=== PATIENT | male | born 1965 | race Two or more races ===

== ENCOUNTER → 2024-01-16 | Outpatient (CLI) | payer OTHER, MEDICAID, SELFPAY ==
[2024-01-16 09:51] LABS: Collection Type, Urine Clean Catch; Squamous Epithelial Cell,Urine 0 /hpf (0-5)
[2024-01-16 10:12] LABS: Basophils % (Auto) 0 % (0-2.5); Eosinophils # (Auto) 0.1 Thou/mm3 (0.0-0.5); Eosinophils % (Auto) 1 % (0-10); Hematocrit 43.2 % (41.0-53.0); Immature Granulocytes % (Auto) 1 % (0-0); Immature Granulocytes Auto 0.03 Thou/mm3 (0.00-0.00); Lymphocytes # (Auto) 1.6 Thou/mm3 (1.0-4.8); Lymphocytes % (Auto) 24 % (10-50); Mean Corpuscular Volume 92 fL (80-100); Monocytes # (Auto) 0.5 Thou/mm3 (0.0-0.8); Monocytes % (Auto) 7 % (0-12); Neutrophils # (Auto) 4.4 Thou/mm3 (1.8-7.7); Neutrophils % (Auto) 67 % (37-80); Nucleated Red Blood Cell % 0 /100 WBC (0); Platelet Count 144 Thou/mm3 (140-440); RDW Standard Deviation 40.8 fL (35.1-43.9); White Blood Count 6.5 Thou/mm3 (3.8-10.6)
[2024-01-16 10:16] LABS: Creatinine,Random Urine 74 mg/dL (30-125); Protein Total, Random Urine 21 mg/dL (1-14)
[2024-01-16 10:18] LABS: Bilirubin,Urine Negative (Negative); Blood,Urine Negative (Negative); Clarity,Urine Clear (Clear/Hazy); Color,Urine Lt-Yellow (Lt Yel-Yel); Culture Indicated,Urine Not Indicated; Glucose, Urine 4+ (Negative); Ketones,Urine Trace (Negative); Leukocyte Esterase,Urine Negative (Negative); Nitrite,Urine Negative (Negative); Protein,Urine Negative (Neg - Trace); RBC,Urine < 1 /hpf (0-3); Specific Gravity,Urine 1.041 (1.001-1.035); Urobilinogen,Urine Negative mg/dL (0.0-1.0); WBC,Urine < 1 /hpf (0-5)
[2024-01-16 10:22] LABS: Alanine Aminotransferase 62 U/L (10-49); Albumin, Serum 4.4 gm/dL (3.4-4.8); Albumin/Globulin Ratio 1.9 (1.2-2.2); Alkaline Phosphatase 108 U/L (46-116); Anion Gap 6 (7-16); Aspartate Amino Transferase 56 U/L (0-34); BUN/Creatinine Ratio 14 Ratio (12-20); Bilirubin,Total 1.3 mg/dL (0.3-1.2); Blood Urea Nitrogen 14 mg/dL (9-23); Calcium 10.1 mg/dL (8.3-10.6); Calcium (Corrected) 10.1 mg/dL (8.5-10.1); Carbon Dioxide 27.8 mMol/L (20.0-31.0); Chloride 105 mMol/L (98-107); Globulin 2.3 gm/dL (2.3-3.5); Glucose 176 mg/dL (74-106); Magnesium 1.6 mg/dL (1.6-2.6); Osmolality,Calculated 282 (275-295); Phosphorous 2.3 mg/dL (2.4-5.1); Potassium 4.2 mMol/L (3.4-5.1); Sodium 139 mMol/L (136-145); Total Protein 6.7 gm/dL (5.7-8.2); eGFR > 60 See Note
[2024-01-22 17:48] LABS: BKQL Source NOT GIVEN; CMV DNA, Qn Real Time PCR NOT DETECTED; CMV Specimen Source NOT GIVEN
[2024-01-23 06:50] LABS: BK Virus DNA, Qnt PCR <2.70 DETECTED Log cps/mL; BK Virus DNA, Qnt PCR <500 DETECTED copies/mL; CMV DNA, Qn PCR NOT DETECTED Log IU/mL; Tacrolimus,highly sensitive* 5.4 mcg/L (5.0-20.0)
[2024-01-23 17:49] LABS: BK Virus DNA,QN PCR,Urine 534667 copies/mL
[2024-01-27 06:32] LABS: BK Virus DNA,QN PCR,Urine 5.73 Log cps/mL
== END | disposition home or self-care (01) ==
PROVIDERS: PCP Family Medicine; Referring Provider Specialist; Visit Provider Specialist
DX: B25.9 Cytomegaloviral disease, unspecified (principal); B34.8 Other viral infections of unspecified site; E83.42 Hypomagnesemia; E83.39 Other disorders of phosphorus metabolism; R80.9 Proteinuria, unspecified
CPT/HCPCS: 36415; 80053; 80197; 81001; 82570; 83735; 84100; 84156; 85025; 87497; 87799

== ENCOUNTER → 2024-03-15 | Outpatient (CLI) | payer OTHER, MEDICAID, SELFPAY ==
--- NOTE | 2024-03-15 | XR_ITS ---
Examination: Thoracic spine 3 views Technique one AP lateral coned lateral upper dorsal spine 3 views Exam date and time: March 15, 2024 1132 hours INDICATIONS: Right-sided upper back pain beginning one month ago. FINDINGS: Significant osteopenia Mild chronic osteoporotic compression mid dorsal vertebral bodies Mild diffuse thoracic disc narrowing No acute thoracic fracture Intact pedicles IMPRESSION: Mild diffuse thoracic degenerative disc disease
== END | disposition home or self-care (01) ==
PROVIDERS: PCP Family Medicine; Referring Provider Family Medicine; Visit Provider Family Medicine
DX: M51.34 Other intervertebral disc degeneration, thoracic region (principal)
CPT/HCPCS: 72070

== ENCOUNTER → 2024-03-19 | Outpatient (CLI) | payer MEDICARE, MEDICAID, SELFPAY ==
[2024-03-19 12:58] LABS: Glucose Estimated Average 243 mg/dL (80-131); Hemoglobin A1C 10.1 % Hgb (4.8-6.0)
[2024-03-19 13:00] LABS: Anion Gap 12 (7-16); BUN/Creatinine Ratio 14 Ratio (12-20); Blood Urea Nitrogen 15 mg/dL (9-23); Calcium 10.3 mg/dL (8.3-10.6); Carbon Dioxide 23.9 mMol/L (20.0-31.0); Chloride 99 mMol/L (98-107); Creatinine (Component) 1.1 mg/dL (0.6-1.3); Glucose 361 mg/dL (74-106); Osmolality,Calculated 285 (275-295); Potassium 4.4 mMol/L (3.4-5.1); Sodium 135 mMol/L (136-145); eGFR > 60 See Note
== END | disposition home or self-care (01) ==
LOC: COPL 11:13
PROVIDERS: PCP Family Medicine; Referring Provider Family Medicine; Visit Provider Family Medicine
DX: E11.65 Type 2 diabetes mellitus with hyperglycemia (principal)
CPT/HCPCS: 36415; 80048; 83036

== ENCOUNTER → 2024-03-29 | Outpatient (CLI) | payer MEDICARE, MEDICAID, SELFPAY ==
[2024-03-29 10:25] LABS: Collection Type, Urine Clean Catch
[2024-03-29 10:44] LABS: Basophils % (Auto) 1 % (0-2.5); Eosinophils # (Auto) 0.1 Thou/mm3 (0.0-0.5); Eosinophils % (Auto) 1 % (0-10); Hematocrit 44.9 % (41.0-53.0); Hemoglobin 16.5 g/dL (13.5-16.0); Immature Granulocytes % (Auto) 1 % (0-0); Immature Granulocytes Auto 0.04 Thou/mm3 (0.00-0.00); Lymphocytes # (Auto) 1.4 Thou/mm3 (1.0-4.8); Lymphocytes % (Auto) 21 % (10-50); Mean Corpuscular HGB Conc 36.7 g/dl (31.0-37.0); Mean Corpuscular Hemoglobin 33.5 pg (25.0-35.0); Mean Corpuscular Volume 91 fL (80-100); Monocytes # (Auto) 0.5 Thou/mm3 (0.0-0.8); Monocytes % (Auto) 8 % (0-12); Neutrophils # (Auto) 4.9 Thou/mm3 (1.8-7.7); Neutrophils % (Auto) 70 % (37-80); Nucleated Red Blood Cell % 0 /100 WBC (0); Platelet Count 178 Thou/mm3 (140-440); RDW Standard Deviation 41.5 fL (35.1-43.9); Red Blood Count 4.92 Miln/mm3 (4.50-5.90)
[2024-03-29 10:55] LABS: Bilirubin,Urine Negative (Negative); Blood,Urine Negative (Negative); Clarity,Urine Clear (Clear/Hazy); Color,Urine Lt-Yellow (Lt Yel-Yel); Culture Indicated,Urine Not Indicated; Glucose, Urine 4+ (Negative); Ketones,Urine 1+ (Negative); Leukocyte Esterase,Urine Negative (Negative); Nitrite,Urine Negative (Negative); Protein,Urine Trace (Neg - Trace); RBC,Urine 1 /hpf (0-3); Specific Gravity,Urine 1.041 (1.001-1.035); Squamous Epithelial Cell,Urine < 1 /hpf (0-5); Urobilinogen,Urine Negative mg/dL (0.0-1.0); WBC,Urine < 1 /hpf (0-5)
[2024-03-29 11:10] LABS: Alanine Aminotransferase 55 U/L (10-49); Albumin, Serum 4.4 gm/dL (3.4-4.8); Albumin/Globulin Ratio 1.6 (1.2-2.2); Alkaline Phosphatase 213 U/L (46-116); Anion Gap 9 (7-16); Aspartate Amino Transferase 77 U/L (0-34); BUN/Creatinine Ratio 16 Ratio (12-20); Bilirubin,Total 0.9 mg/dL (0.3-1.2); Blood Urea Nitrogen 16 mg/dL (9-23); Calcium 10.7 mg/dL (8.3-10.6); Calcium (Corrected) 10.7 mg/dL (8.5-10.1); Carbon Dioxide 26.7 mMol/L (20.0-31.0); Chloride 101 mMol/L (98-107); Globulin 2.7 gm/dL (2.3-3.5); Glucose 253 mg/dL (74-106); Magnesium 1.9 mg/dL (1.6-2.6); Osmolality,Calculated 284 (275-295); Phosphorous 3.5 mg/dL (2.4-5.1); Potassium 4.6 mMol/L (3.4-5.1); Sodium 137 mMol/L (136-145); Total Protein 7.1 gm/dL (5.7-8.2); eGFR > 60 See Note
[2024-03-29 11:11] LABS: Creatinine,Random Urine 44 mg/dL (30-125); Protein Total, Random Urine 24 mg/dL (1-14)
[2024-03-31 13:49] LABS: BK Virus DNA,QN PCR,Urine 13898154 copies/mL
[2024-04-01 06:55] LABS: BK Virus DNA,QN PCR,Urine 7.14 Log cps/mL
[2024-04-03 22:08] LABS: BKQL Source BLOOD; CMV DNA, Qn Real Time PCR NOT DETECTED; CMV Specimen Source BLOOD
[2024-04-05 06:59] LABS: BK Virus DNA, Qnt PCR <2.70 DETECTED Log cps/mL; BK Virus DNA, Qnt PCR <500 DETECTED copies/mL; CMV DNA, Qn PCR NOT DETECTED Log IU/mL; Tacrolimus,highly sensitive* 12.2 mcg/L (5.0-20.0)
== END | disposition home or self-care (01) ==
PROVIDERS: PCP Family Medicine; Referring Provider Specialist; Visit Provider Specialist
DX: Z94.0 Kidney transplant status (principal); B25.9 Cytomegaloviral disease, unspecified; E83.42 Hypomagnesemia; E83.39 Other disorders of phosphorus metabolism; N39.0 Urinary tract infection, site not specified; R80.9 Proteinuria, unspecified
CPT/HCPCS: 36415; 80053; 80197; 81001; 82570; 83735; 84100; 84156; 85025; 87497; 87799

== ENCOUNTER → 2024-04-12 | Outpatient (CLI) | payer MEDICARE, MEDICAID, SELFPAY ==
[2024-04-12 10:43] LABS: Basophils % (Auto) 0 % (0-2.5); Eosinophils # (Auto) 0.1 Thou/mm3 (0.0-0.5); Eosinophils % (Auto) 1 % (0-10); Hematocrit 43.5 % (41.0-53.0); Immature Granulocytes % (Auto) 0 % (0-0); Immature Granulocytes Auto 0.03 Thou/mm3 (0.00-0.00); Lymphocytes # (Auto) 1.3 Thou/mm3 (1.0-4.8); Lymphocytes % (Auto) 19 % (10-50); Mean Corpuscular HGB Conc 36.8 g/dl (31.0-37.0); Mean Corpuscular Hemoglobin 33.5 pg (25.0-35.0); Mean Corpuscular Volume 91 fL (80-100); Monocytes # (Auto) 0.5 Thou/mm3 (0.0-0.8); Monocytes % (Auto) 7 % (0-12); Neutrophils % (Auto) 72 % (37-80); Nucleated Red Blood Cell % 0 /100 WBC (0); Platelet Count 141 Thou/mm3 (140-440); RDW Standard Deviation 40.9 fL (35.1-43.9); Red Blood Count 4.78 Miln/mm3 (4.50-5.90)
[2024-04-12 11:12] LABS: Collection Type, Urine Clean Catch; RBC,Urine 0 /hpf (0-3); Squamous Epithelial Cell,Urine 0 /hpf (0-5); WBC,Urine 0 /hpf (0-5)
[2024-04-12 11:49] LABS: Alanine Aminotransferase 38 U/L (10-49); Albumin, Serum 4.2 gm/dL (3.4-4.8); Albumin/Globulin Ratio 1.8 (1.2-2.2); Alkaline Phosphatase 157 U/L (46-116); Anion Gap 10 (7-16); Aspartate Amino Transferase 42 U/L (0-34); BUN/Creatinine Ratio 18 Ratio (12-20); Bilirubin,Total 0.9 mg/dL (0.3-1.2); Blood Urea Nitrogen 18 mg/dL (9-23); Carbon Dioxide 25.6 mMol/L (20.0-31.0); Chloride 103 mMol/L (98-107); Globulin 2.4 gm/dL (2.3-3.5); Glucose 272 mg/dL (74-106); Magnesium 1.9 mg/dL (1.6-2.6); Osmolality,Calculated 289 (275-295); Phosphorous 2.5 mg/dL (2.4-5.1); Potassium 4.1 mMol/L (3.4-5.1); Sodium 139 mMol/L (136-145); Total Protein 6.6 gm/dL (5.7-8.2); eGFR > 60 See Note
[2024-04-12 11:52] LABS: Bilirubin,Urine Negative (Negative); Blood,Urine Negative (Negative); Clarity,Urine Clear (Clear/Hazy); Color,Urine Lt-Yellow (Lt Yel-Yel); Creatinine,Random Urine 53 mg/dL (30-125); Glucose, Urine 4+ (Negative); Ketones,Urine 2+ (Negative); Leukocyte Esterase,Urine Negative (Negative); Nitrite,Urine Negative (Negative); Protein Total, Random Urine 35 mg/dL (1-14); Protein,Urine 1+ (Neg - Trace); Specific Gravity,Urine 1.044 (1.001-1.035); Urobilinogen,Urine Negative mg/dL (0.0-1.0)
[2024-04-14 07:05] LABS: BK Virus DNA,QN PCR,Urine 21916862 copies/mL
[2024-04-14 07:54] LABS: BK Virus DNA,QN PCR,Urine 7.34 Log cps/mL
[2024-04-17 17:47] LABS: BKQL Source PLASMA; CMV DNA, Qn Real Time PCR NOT DETECTED; CMV Specimen Source WHOLE BLOOD LAV
[2024-04-19 06:38] LABS: BK Virus DNA, Qnt PCR <2.70 DETECTED Log cps/mL; BK Virus DNA, Qnt PCR <500 DETECTED copies/mL; CMV DNA, Qn PCR NOT DETECTED Log IU/mL; Tacrolimus,highly sensitive* 4.2 mcg/L (5.0-20.0)
== END | disposition home or self-care (01) ==
LOC: COPL 10:01
PROVIDERS: PCP Family Medicine; Referring Provider Specialist; Visit Provider Specialist
DX: Z94.0 Kidney transplant status (principal); B25.9 Cytomegaloviral disease, unspecified; E83.42 Hypomagnesemia; E83.39 Other disorders of phosphorus metabolism; R80.9 Proteinuria, unspecified; N39.0 Urinary tract infection, site not specified
CPT/HCPCS: 36415; 80053; 80197; 81001; 82570; 83735; 84100; 84156; 85025; 87086; 87497; 87799

== ENCOUNTER → 2024-05-17 | Outpatient (CLI) | payer MEDICARE, MEDICAID, SELFPAY ==
[2024-05-17 10:52] LABS: Collection Type, Urine Clean Catch; WBC,Urine 0 /hpf (0-5)
[2024-05-17 11:25] LABS: Basophils % (Auto) 0 % (0-2.5); Eosinophils # (Auto) 0.1 Thou/mm3 (0.0-0.5); Eosinophils % (Auto) 1 % (0-10); Hematocrit 46.7 % (41.0-53.0); Immature Granulocytes % (Auto) 0 % (0-0); Immature Granulocytes Auto 0.04 Thou/mm3 (0.00-0.00); Lymphocytes # (Auto) 1.7 Thou/mm3 (1.0-4.8); Lymphocytes % (Auto) 19 % (10-50); Mean Corpuscular HGB Conc 36.4 g/dl (31.0-37.0); Mean Corpuscular Hemoglobin 33.1 pg (25.0-35.0); Mean Corpuscular Volume 91 fL (80-100); Monocytes # (Auto) 0.6 Thou/mm3 (0.0-0.8); Monocytes % (Auto) 6 % (0-12); Neutrophils # (Auto) 6.5 Thou/mm3 (1.8-7.7); Neutrophils % (Auto) 73 % (37-80); Nucleated Red Blood Cell % 0 /100 WBC (0); Platelet Count 155 Thou/mm3 (140-440); RDW Standard Deviation 40.9 fL (35.1-43.9); Red Blood Count 5.13 Miln/mm3 (4.50-5.90); White Blood Count 8.9 Thou/mm3 (3.8-10.6)
[2024-05-17 11:28] LABS: Bilirubin,Urine Negative (Negative); Blood,Urine Negative (Negative); Clarity,Urine Clear (Clear/Hazy); Color,Urine Lt-Yellow (Lt Yel-Yel); Glucose, Urine 4+ (Negative); Hyaline Casts,Urine < 1 /hpf (0-1); Ketones,Urine 1+ (Negative); Leukocyte Esterase,Urine Negative (Negative); Nitrite,Urine Negative (Negative); Protein,Urine Trace (Neg - Trace); RBC,Urine 1 /hpf (0-3); Specific Gravity,Urine 1.044 (1.001-1.035); Squamous Epithelial Cell,Urine < 1 /hpf (0-5); Urobilinogen,Urine Negative mg/dL (0.0-1.0)
[2024-05-17 12:09] LABS: Albumin, Serum 4.7 gm/dL (3.4-4.8); Anion Gap 11 (7-16); BUN/Creatinine Ratio 18 Ratio (12-20); Blood Urea Nitrogen 18 mg/dL (9-23); Calcium 10.3 mg/dL (8.3-10.6); Calcium (Corrected) 10.3 mg/dL (8.5-10.1); Carbon Dioxide 24.6 mMol/L (20.0-31.0); Chloride 104 mMol/L (98-107); Glucose 181 mg/dL (74-106); Osmolality,Calculated 286 (275-295); Potassium 4.5 mMol/L (3.4-5.1); Sodium 140 mMol/L (136-145); eGFR > 60 See Note
== END | disposition home or self-care (01) ==
LOC: COPL 10:20
PROVIDERS: PCP Family Medicine; Referring Provider Internal Medicine Nephrology; Visit Provider Internal Medicine Nephrology
DX: E11.9 Type 2 diabetes mellitus without complications (principal); I10 Essential (primary) hypertension; Z94.0 Kidney transplant status
CPT/HCPCS: 36415; 80069; 80197; 81001; 85025

== ENCOUNTER → 2024-06-07 | Outpatient (CLI) | payer OTHER, MEDICAID, SELFPAY ==
[2024-06-07 11:46] LABS: Creatinine MALB Rnd Ur 44 mg/dL (30-125); Microalbumin Creat Ratio 200 mg/gCrea (<30); Microalbumin, Random Urine 88 mg/L (0-300)
[2024-06-07 11:46] LABS: Anion Gap 12 (7-16); BUN/Creatinine Ratio 18 Ratio (12-20); Blood Urea Nitrogen 18 mg/dL (9-23); Calcium 10.3 mg/dL (8.3-10.6); Carbon Dioxide 24.9 mMol/L (20.0-31.0); Cardiac Risk Estimate 5.7 RATIO (4.0-6.7); Chloride 100 mMol/L (98-107); Cholesterol 290 mg/dL (132-200); Glucose 338 mg/dL (74-106); HDL Cholesterol 51 mg/dL (40-60); Osmolality,Calculated 288 (275-295); Potassium 4.4 mMol/L (3.4-5.1); Sodium 137 mMol/L (136-145); Triglycerides 559 mg/dL (30-150); eGFR > 60 See Note
[2024-06-07 11:50] LABS: Glucose Estimated Average 226 mg/dL (80-131); Hemoglobin A1C 9.5 % Hgb (4.8-6.0)
== END | disposition home or self-care (01) ==
LOC: COPL 10:18
PROVIDERS: PCP Family Medicine; Referring Provider Family Medicine; Visit Provider Family Medicine
DX: E11.65 Type 2 diabetes mellitus with hyperglycemia (principal)
CPT/HCPCS: 36415; 80048; 80061; 82043; 82570; 83036

== ENCOUNTER → 2024-06-08 | Outpatient (CLI) | payer OTHER, MEDICAID, SELFPAY ==
--- NOTE | 2024-06-08 | XR_ITS ---
Examination: Lumbar spine 7 views TECHNIQUE: AP, lateral, coned lateral lower lumbar spine, lateral standing flexion, lateral standing extension, [place] 7 views Exam date and time: June 08, 2024 1237 hours INDICATIONS: Lower back pain years., History lumbar spine surgery FINDINGS: Moderate osteopenia Transpedicular lumbar fusion L4-S1 with anatomic alignment Mild lumbar spondylosis No significant lumbar disc narrowing above the fusion site IMPRESSION: Transpedicular lumbar fusion L4-S1 with anatomic alignment No significant range of motion between flexion and extension
== END | disposition home or self-care (01) ==
PROVIDERS: PCP Family Medicine; Referring Provider Family Medicine; Visit Provider Family Medicine
DX: M43.27 Fusion of spine, lumbosacral region (principal)
CPT/HCPCS: 72114

== ENCOUNTER → 2024-07-07 | Outpatient (CLI) | payer OTHER, MEDICAID, SELFPAY ==
--- NOTE | 2024-07-07 15:00 | XR_ITS ---
Examination: CT abdomen with intravenous contrast CT pelvis with intravenous contrast 2-D coronal reconstructions 2-D sagittal reconstructions Date and time of exam:July 07, 2024 1506 hours Comparison June 02, 2020 INDICATIONS: Diagnosis central hemorrhagic necrosis of the liver, right upper abdominal pain right lower abdominal pain beginning 3 weeks ago, 12 pound weight loss in the last 5 months, right kidney transplant 2007. CTDI: vol (mGy) 5.77 DLP: (mGycm) 356 Technique: Multiple axial sections of the abdomen and pelvis have been obtained. 64 slice high-resolution scanner used. 3 mm axial sections have been obtained, post intravenous injection 60 cc [id number] 2-D sagittal, coronal reconstructions obtained. Low dose protocols were performed. One or more of the following dose reduction techniques were used; automated exposure control, adjustment of the mA and/or KV according to patient size, use of iterative reconstruction technique. Findings: Stable multiple small liver cysts Fatty infiltration throughout the liver Contracted gallbladder No splenic or pancreatic mass Normal adrenal glands End stage atrophic [place] kidneys with 2 mm right renal calculus Aorta normal size Normal appendix No bowel obstruction Colonic diverticulosis Right pelvic transplant kidney with no hydronephrosis Intact urinary bladder Transverse prostate dimension 4.8 cm Transpedicular lumbar fusion L4-S1 with satisfactory alignment including laminectomies IMPRESSION: Stable small multiple cysts in the liver End-stage [place] kidneys Pelvic transplant kidney with no hydronephrosis
== END | disposition home or self-care (01) ==
LOC: CCTX 14:47
PROVIDERS: PCP Family Medicine; Referring Provider Internal Medicine Nephrology; Visit Provider Internal Medicine Nephrology
DX: K76.89 Other specified diseases of liver (principal); Z94.0 Kidney transplant status
CPT/HCPCS: 74177; A4649; Q9967

== ENCOUNTER → 2024-08-24 | Outpatient (CLI) | payer OTHER, MEDICAID, SELFPAY ==
[2024-08-24 09:22] LABS: Basophils % (Auto) 1 % (0-2.5); Eosinophils # (Auto) 0.1 Thou/mm3 (0.0-0.5); Eosinophils % (Auto) 1 % (0-10); Hematocrit 40.5 % (41.0-53.0); Hemoglobin 15.7 g/dL (13.5-16.0); Immature Granulocytes % (Auto) 1 % (0-0); Immature Granulocytes Auto 0.03 Thou/mm3 (0.00-0.00); Lymphocytes # (Auto) 1.2 Thou/mm3 (1.0-4.8); Lymphocytes % (Auto) 18 % (10-50); Mean Corpuscular HGB Conc 38.8 g/dl (31.0-37.0); Mean Corpuscular Hemoglobin 34.1 pg (25.0-35.0); Mean Corpuscular Volume 88 fL (80-100); Monocytes # (Auto) 0.4 Thou/mm3 (0.0-0.8); Monocytes % (Auto) 6 % (0-12); Neutrophils # (Auto) 4.8 Thou/mm3 (1.8-7.7); Neutrophils % (Auto) 74 % (37-80); Nucleated Red Blood Cell % 0 /100 WBC (0); Platelet Count 140 Thou/mm3 (140-440); RDW Standard Deviation 39.5 fL (35.1-43.9); White Blood Count 6.5 Thou/mm3 (3.8-10.6)
[2024-08-24 09:47] LABS: Albumin, Serum 4.1 gm/dL (3.4-4.8); Anion Gap 11 (7-16); BUN/Creatinine Ratio 11 Ratio (12-20); Blood Urea Nitrogen 10 mg/dL (9-23); Calcium 9.2 mg/dL (8.3-10.6); Calcium (Corrected) 9.2 mg/dL (8.5-10.1); Carbon Dioxide 26.6 mMol/L (20.0-31.0); Chloride 104 mMol/L (98-107); Creatinine (Component) 0.9 mg/dL (0.6-1.3); Glucose 271 mg/dL (74-106); Osmolality,Calculated 292 (275-295); Phosphorous 1.9 mg/dL (2.4-5.1); Potassium 4.2 mMol/L (3.4-5.1); Sodium 142 mMol/L (136-145); eGFR > 60 See Note
[2024-08-24 10:13] LABS: Glucose Estimated Average 235 mg/dL (80-131); Hemoglobin A1C 9.8 % Hgb (4.8-6.0)
[2024-08-24 10:31] LABS: Collection Type, Urine Clean Catch
[2024-08-24 11:25] LABS: Bilirubin,Urine Negative (Negative); Blood,Urine Negative (Negative); Clarity,Urine Clear (Clear/Hazy); Color,Urine Lt-Yellow (Lt Yel-Yel); Glucose, Urine 4+ (Negative); Ketones,Urine 2+ (Negative); Leukocyte Esterase,Urine Negative (Negative); Nitrite,Urine Negative (Negative); Protein,Urine Trace (Neg - Trace); RBC,Urine 2 /hpf (0-3); Specific Gravity,Urine 1.038 (1.001-1.035); Squamous Epithelial Cell,Urine 1 /hpf (0-5); Urobilinogen,Urine Negative mg/dL (0.0-1.0); WBC,Urine < 1 /hpf (0-5)
[2024-08-30 07:15] LABS: Tacrolimus,highly sensitive* 1.2 mcg/L (5.0-20.0)
== END | disposition home or self-care (01) ==
LOC: COPL 08:49
PROVIDERS: PCP Family Medicine; Referring Provider Internal Medicine Nephrology; Visit Provider Internal Medicine Nephrology
DX: E11.9 Type 2 diabetes mellitus without complications (principal); E66.3 Overweight; Z94.0 Kidney transplant status
CPT/HCPCS: 36415; 80069; 80197; 81001; 83036; 85025

== ENCOUNTER → 2024-11-02 | Outpatient (CLI) | payer OTHER, MEDICAID, SELFPAY ==
[2024-11-02 10:35] LABS: Glucose Estimated Average 252 mg/dL (80-131); Hemoglobin A1C 10.4 % Hgb (4.8-6.0)
[2024-11-02 10:45] LABS: Anion Gap 11 (7-16); BUN/Creatinine Ratio 16 Ratio (12-20); Blood Urea Nitrogen 14 mg/dL (9-23); Calcium 10.0 mg/dL (8.3-10.6); Carbon Dioxide 26.1 mMol/L (20.0-31.0); Chloride 102 mMol/L (98-107); Creatinine (Component) 0.9 mg/dL (0.6-1.3); Glucose 297 mg/dL (74-106); Osmolality,Calculated 289 (275-295); Potassium 4.3 mMol/L (3.4-5.1); Sodium 139 mMol/L (136-145); eGFR > 60 See Note
== END | disposition home or self-care (01) ==
LOC: COPL 09:39
PROVIDERS: PCP Family Medicine; Referring Provider Family Medicine; Visit Provider Family Medicine
DX: E11.65 Type 2 diabetes mellitus with hyperglycemia (principal)
CPT/HCPCS: 36415; 80048; 83036

== ENCOUNTER → 2024-11-24 | Outpatient (CLI) | payer OTHER, MEDICAID, SELFPAY ==
[2024-11-24 09:07] LABS: Collection Type, Urine Clean Catch; Squamous Epithelial Cell,Urine 0 /hpf (0-5)
[2024-11-24 09:31] LABS: Basophils # (Auto) 0.0 Thou/mm3 (0.0-0.2); Basophils % (Auto) 0 % (0-2.5); Eosinophils # (Auto) 0.1 Thou/mm3 (0.0-0.5); Eosinophils % (Auto) 1 % (0-10); Hematocrit 41.7 % (41.0-53.0); Hemoglobin 15.6 g/dL (13.5-16.0); Immature Granulocytes Auto 0.04 Thou/mm3 (0.00-0.00); Lymphocytes # (Auto) 1.2 Thou/mm3 (1.0-4.8); Lymphocytes % (Auto) 18 % (10-50); Mean Corpuscular HGB Conc 37.4 g/dl (31.0-37.0); Mean Corpuscular Hemoglobin 34.4 pg (25.0-35.0); Mean Corpuscular Volume 92 fL (80-100); Monocytes # (Auto) 0.5 Thou/mm3 (0.0-0.8); Monocytes % (Auto) 8 % (0-12); Neutrophils # (Auto) 4.9 Thou/mm3 (1.8-7.7); Neutrophils % (Auto) 72 % (37-80); Nucleated Red Blood Cell # 0.00 Thou/mm3 (0.00-0.00); Nucleated Red Blood Cell % 0 /100 WBC (0); Platelet Count 144 Thou/mm3 (140-440); RDW Standard Deviation 40.7 fL (35.1-43.9); Red Blood Count 4.53 Miln/mm3 (4.50-5.90); White Blood Count 6.8 Thou/mm3 (3.8-10.6)
[2024-11-24 09:40] LABS: Bilirubin,Urine Negative (Negative); Blood,Urine Negative (Negative); Clarity,Urine Clear (Clear/Hazy); Color,Urine Lt-Yellow (Lt Yel-Yel); Culture Indicated,Urine Not Indicated; Glucose, Urine 4+ (Negative); Ketones,Urine Trace (Negative); Leukocyte Esterase,Urine Negative (Negative); Nitrite,Urine Negative (Negative); PH,Urine 6.5 (5.0-7.0); Protein,Urine Trace (Neg - Trace); RBC,Urine < 1 /hpf (0-3); Specific Gravity,Urine 1.041 (1.001-1.035); Urobilinogen,Urine Negative mg/dL (0.0-1.0); WBC,Urine < 1 /hpf (0-5)
[2024-11-24 09:51] LABS: Albumin, Serum 4.1 gm/dL (3.4-4.8); Anion Gap 9 (7-16); BUN/Creatinine Ratio 10 Ratio (12-20); Blood Urea Nitrogen 9 mg/dL (9-23); Calcium 9.7 mg/dL (8.3-10.6); Calcium (Corrected) 9.7 mg/dL (8.5-10.1); Carbon Dioxide 27.8 mMol/L (20.0-31.0); Chloride 100 mMol/L (98-107); Creatinine (Component) 0.9 mg/dL (0.6-1.3); Glucose 337 mg/dL (74-106); Osmolality,Calculated 285 (275-295); Phosphorous 2.6 mg/dL (2.4-5.1); Potassium 4.0 mMol/L (3.4-5.1); Sodium 137 mMol/L (136-145); eGFR > 60 See Note
[2024-11-29 06:37] LABS: Tacrolimus,highly sensitive* 2.2 mcg/L (5.0-20.0)
== END | disposition home or self-care (01) ==
LOC: COPL 08:34
PROVIDERS: PCP Family Medicine; Referring Provider Internal Medicine Nephrology; Visit Provider Internal Medicine Nephrology
DX: Z94.0 Kidney transplant status (principal); N39.0 Urinary tract infection, site not specified; I10 Essential (primary) hypertension; E11.9 Type 2 diabetes mellitus without complications
CPT/HCPCS: 36415; 80069; 80197; 81001; 85025

== ENCOUNTER → 2024-12-29 | Outpatient (CLI) | payer OTHER, MEDICAID, SELFPAY ==
[2024-12-29 09:03] LABS: Collection Type, Urine Clean Catch; Squamous Epithelial Cell,Urine 0 /hpf (0-5)
[2024-12-29 09:25] LABS: Basophils # (Auto) 0.0 Thou/mm3 (0.0-0.2); Basophils % (Auto) 0 % (0-2.5); Eosinophils # (Auto) 0.1 Thou/mm3 (0.0-0.5); Eosinophils % (Auto) 1 % (0-10); Hematocrit 45.6 % (41.0-53.0); Hemoglobin 17.0 g/dL (13.5-16.0); Immature Granulocytes Auto 0.07 Thou/mm3 (0.00-0.00); Lymphocytes # (Auto) 1.2 Thou/mm3 (1.0-4.8); Lymphocytes % (Auto) 17 % (10-50); Mean Corpuscular HGB Conc 37.3 g/dl (31.0-37.0); Mean Corpuscular Hemoglobin 34.0 pg (25.0-35.0); Mean Corpuscular Volume 91 fL (80-100); Monocytes # (Auto) 0.5 Thou/mm3 (0.0-0.8); Monocytes % (Auto) 8 % (0-12); Neutrophils # (Auto) 5.2 Thou/mm3 (1.8-7.7); Neutrophils % (Auto) 73 % (37-80); Nucleated Red Blood Cell # 0.00 Thou/mm3 (0.00-0.00); Nucleated Red Blood Cell % 0 /100 WBC (0); Platelet Count 141 Thou/mm3 (140-440); RDW Standard Deviation 39.9 fL (35.1-43.9); Red Blood Count 5.00 Miln/mm3 (4.50-5.90); White Blood Count 7.1 Thou/mm3 (3.8-10.6)
[2024-12-29 09:36] LABS: Bilirubin,Urine Negative (Negative); Blood,Urine Negative (Negative); Clarity,Urine Clear (Clear/Hazy); Color,Urine Lt-Yellow (Lt Yel-Yel); Glucose, Urine 4+ (Negative); Ketones,Urine 2+ (Negative); Leukocyte Esterase,Urine Negative (Negative); Nitrite,Urine Negative (Negative); PH,Urine 6.0 (5.0-7.0); Protein,Urine Trace (Neg - Trace); RBC,Urine 1 /hpf (0-3); Specific Gravity,Urine 1.038 (1.001-1.035); Urobilinogen,Urine Negative mg/dL (0.0-1.0); WBC,Urine < 1 /hpf (0-5)
[2024-12-29 09:38] LABS: Albumin, Serum 4.4 gm/dL (3.4-4.8); Anion Gap 13 (7-16); BUN/Creatinine Ratio 15 Ratio (12-20); Blood Urea Nitrogen 12 mg/dL (9-23); Calcium 9.9 mg/dL (8.3-10.6); Calcium (Corrected) 9.9 mg/dL (8.5-10.1); Carbon Dioxide 25.5 mMol/L (20.0-31.0); Chloride 103 mMol/L (98-107); Creatinine (Component) 0.8 mg/dL (0.6-1.3); Glucose 247 mg/dL (74-106); Osmolality,Calculated 288 (275-295); Phosphorous 3.2 mg/dL (2.4-5.1); Potassium 4.4 mMol/L (3.4-5.1); Sodium 141 mMol/L (136-145); eGFR > 60 See Note
[2025-01-03 06:41] LABS: Tacrolimus,highly sensitive* 2.7 mcg/L (5.0-20.0)
== END | disposition home or self-care (01) ==
LOC: COPL 08:00
PROVIDERS: PCP Family Medicine; Referring Provider Internal Medicine Nephrology; Visit Provider Internal Medicine Nephrology
DX: Z94.0 Kidney transplant status (principal)
CPT/HCPCS: 36415; 80069; 80197; 81001; 85025

== ENCOUNTER → 2025-01-17 | Outpatient (CLI) | payer OTHER, MEDICAID, SELFPAY ==
[2025-01-21 06:35] LABS: Tacrolimus,highly sensitive* 3.5 mcg/L (5.0-20.0)
== END | disposition home or self-care (01) ==
LOC: COPL 08:07
PROVIDERS: PCP Family Medicine; Referring Provider Internal Medicine Nephrology; Visit Provider Internal Medicine Nephrology
DX: Z94.0 Kidney transplant status (principal)
CPT/HCPCS: 36415; 80197

== ENCOUNTER → 2025-02-23 | Outpatient (CLI) | payer OTHER, MEDICAID, SELFPAY ==
--- NOTE | 2025-02-23 13:20 | XR_ITS ---
Examination: Bone densitometry Date and time of exam: September 23, 2024, 1341 hours INDICATIONS: 59-year-old male with diagnosis age-related osteoporosis, history back fracture 3 years ago, patient received steroid medication for renal transplant Technique: Lumbar spine and hip total bone mineralization values of an calculated. Peak reference and age match control results have been displayed. Findings: Lumbar spine total bone mineralization is 0.982 gm/cm2. This is 0.8 standard deviations below peak reference. This is 0.1 standard deviations below age-matched controls. Hip total bone mineralization is 0.882 gm/cm2 This is 1.3 standard deviations below peak reference. This is 0.9 standard deviations below age-matched controls Impression: There is normal mineralization based on lumbar spine measurements. There is osteopenia based on hip measurements
== END | disposition home or self-care (01) ==
LOC: CDIM 13:08
PROVIDERS: PCP Family Medicine; Referring Provider Family Medicine; Visit Provider Family Medicine
DX: M85.88 Other specified disorders of bone density and structure, other site (principal)
CPT/HCPCS: 77080

== ENCOUNTER → 2025-02-23 | Outpatient (CLI) | payer OTHER, MEDICAID, SELFPAY ==
[2025-02-23 10:42] LABS: Glucose Estimated Average 280 mg/dL (80-131); Hemoglobin A1C 11.4 % Hgb (4.8-6.0)
== END | disposition home or self-care (01) ==
LOC: COPL 09:20
PROVIDERS: PCP Family Medicine; Referring Provider Family Medicine; Visit Provider Family Medicine
DX: E11.65 Type 2 diabetes mellitus with hyperglycemia (principal)
CPT/HCPCS: 36415; 83036

== ENCOUNTER → 2025-03-08 | Outpatient (CLI) | payer OTHER, MEDICAID, SELFPAY ==
--- NOTE | 2025-03-08 14:25 | XR_ITS ---
Examination: Left hip AP, lateral, AP pelvis 3 views Technique: Hip AP lateral, AP pelvis, 3 views Exam date and time: March 08, 2025, 1451 hours INDICATIONS: Patient fell 2 days ago with injury to left hip, left hip pain. FINDINGS: No acute left hip fracture or dislocation Right hip bones of the pelvis intact IMPRESSION: No acute hip or pelvic fracture If pain persists, recommend follow-up plain films in 1 to 2 days.
== END | disposition home or self-care (01) ==
LOC: CDIM 13:56
PROVIDERS: PCP Family Medicine; Referring Provider Family Medicine; Visit Provider Family Medicine
DX: S79.912A Unspecified injury of left hip, initial encounter (principal); W19.XXXA Unspecified fall, initial encounter
CPT/HCPCS: 73502

== ENCOUNTER 2025-03-14 12:20 | Emergency (ER) | payer OTHER, MEDICAID, SELFPAY ==
[2025-03-14 12:32] VITALS: BP 142/82; PULSE 89; RESP 18; TEMP 36.7; O2SAT 99; BMI 23.1
--- NOTE | 2025-03-14 12:38 | XR_ITS ---
Study: Head CT without contrast at 1248 hours 14 March 2025 INDICATION: Posterior head mass. Chief complaint: Pain to the back of the head. Onset this day. TECHNIQUE: 5 mm slice thickness without contrast. 5 mm sagittal and coronal reformats. 3D surface reconstruction of the skull with rotating presentation. Radiation dose 1082 mGy centimeters with dose reduction technique. The lateral ventricles are mildly dilated commensurate with the degree of cortical atrophy. There is no midline shift, intracranial bleed, mass, cortical edema or parenchymal calcification. The white-palomo junctions remain visible. There is no focal lesion of the brainstem or cerebellum. The scalp, skull and mastoid air cells are normal. A very small mucous retention cyst is noted in the left maxillary sinus. The sinuses are otherwise normal. The sella turcica and its contents are grossly normal. IMPRESSION: No significant diagnostic abnormality of the brain skull or scalp.
--- NOTE | 2025-03-14 12:39 | PD.EDRME ---
Rapid Medical Screening Exam [facility] Arrival date/time: 03/14/25 12:20 59-year-old male with no known medical history presents to the emergency room with a chief complaint of a 10 out of 10 headache. Patient also states he has a lump to the back of his head x 4 days I have greeted and performed a focused initial assessment of this patient. A comprehensive ED assessment and evaluation of the patient, analysis of all test results, and completion of the medical decision making process will be conducted by additional ED providers. Chief Complaint: Headache Vital signs: Vital Signs Temperature 98.1 F 03/14/25 12:32 Pulse Rate 89 03/14/25 12:32 Respiratory Rate 18 03/14/25 12:32 Blood Pressure 142/82 H 03/14/25 12:32 Pulse Oximetry (%) 99 03/14/25 12:32 Oxygen Delivery Method Room Air 03/14/25 12:32 Vital signs reviewed by provider: Yes Exam: GCS of 15 alert oriented x 3 Clear bilateral lung sounds Clinical Impression: Headache
[2025-03-14 13:06] LABS: Basophils # (Auto) 0.0 Thou/mm3 (0.0-0.2); Basophils % (Auto) 0 % (0-2.5); Eosinophils # (Auto) 0.0 Thou/mm3 (0.0-0.5); Eosinophils % (Auto) 0 % (0-10); Hematocrit 39.3 % (41.0-53.0); Hemoglobin 14.9 g/dL (13.5-16.0); Immature Granulocytes Auto 0.04 Thou/mm3 (0.00-0.00); Lymphocytes # (Auto) 1.1 Thou/mm3 (1.0-4.8); Lymphocytes % (Auto) 11 % (10-50); Mean Corpuscular HGB Conc 37.9 g/dl (31.0-37.0); Mean Corpuscular Hemoglobin 33.9 pg (25.0-35.0); Mean Corpuscular Volume 90 fL (80-100); Monocytes # (Auto) 0.5 Thou/mm3 (0.0-0.8); Monocytes % (Auto) 5 % (0-12); Neutrophils # (Auto) 8.2 Thou/mm3 (1.8-7.7); Neutrophils % (Auto) 83 % (37-80); Nucleated Red Blood Cell # 0.00 Thou/mm3 (0.00-0.00); Nucleated Red Blood Cell % 0 /100 WBC (0); Platelet Count 148 Thou/mm3 (140-440); RDW Standard Deviation 38.5 fL (35.1-43.9); Red Blood Count 4.39 Miln/mm3 (4.50-5.90); White Blood Count 9.8 Thou/mm3 (3.8-10.6)
[2025-03-14 13:16] LABS: Sed Rate (ESR) 12 mm/hr (0-20)
[2025-03-14 13:34] LABS: Alanine Aminotransferase 23 U/L (10-49); Albumin, Serum 4.4 gm/dL (3.4-4.8); Albumin/Globulin Ratio 1.7 (1.2-2.2); Alkaline Phosphatase 197 U/L (46-116); Anion Gap 10 (7-16); Aspartate Amino Transferase 24 U/L (0-34); BUN/Creatinine Ratio 9 Ratio (12-20); Bilirubin,Total 0.8 mg/dL (0.3-1.2); Blood Urea Nitrogen 10 mg/dL (9-23); C-Reactive Protein 1.2 mg/dL (0.0-0.9); Calcium 9.5 mg/dL (8.3-10.6); Calcium (Corrected) 9.5 mg/dL (8.5-10.1); Carbon Dioxide 26.1 mMol/L (20.0-31.0); Chloride 100 mMol/L (98-107); Creatinine (Component) 1.1 mg/dL (0.6-1.3); Estimated Creatinine Clearance 61.3 mL/min (>60); Globulin 2.6 gm/dL (2.3-3.5); Osmolality,Calculated 295 (275-295); Potassium 4.1 mMol/L (3.4-5.1); Sodium 136 mMol/L (136-145); Total Protein 7.0 gm/dL (5.7-8.2); eGFR > 60 See Note
[2025-03-14 13:35] LABS: Glucose 557 mg/dL (74-106)
--- NOTE | 2025-03-14 15:26 | EDNOTE_ITS ---
ED General RME/HPI General Chief complaint: Headache Stated complaint: HEADACHE 12/24 Time Seen by Provider: 03/14/25 13:43 Arrival date/time: 03/14/25 12:20 CC: Headache HPI ongoing for the past 2 days. Patient also admits his sugars have been running high . Patient denies chest pain shortness of breath diff iculty breathing no other complaints no OTC medicines taken for the headache. RME / HPI RME / HPI narrative: 03/14/25 12:20 59-year-old male with no known medical history presents to the emergency room with a chief complaint of a 10 out of 10 headache. Patient also states he has a lump to the back of his head x 4 days I have greeted and performed a focused initial assessment of this patient. A comprehensive ED assessment and evaluation of the patient, analysis of all test results, and completion of the medical decision making process will be conducted by additional ED providers. Exam: GCS of 15 alert oriented x 3 Clear bilateral lung sounds Impression: Headache Related Data Previous Rx's ?Medication ?Instructions ?Recorded hydrocodone 5 mg-acetaminophen 325 1 tab PO TID #20 ta bs 10/11/ mg tablet ibuprofen 800 mg tablet 800 mg PO TID PRN pain #30 t abs 07/02/22 sulfamethoxazole 800 1 tab PO BID 7 days #14 tabs 03/14/25 mg-trimethoprim 160 mg tablet (Bactrim DS) Allergies Allergy/AdvReac Type Severity Reaction Status Date / Time No Known Allergies Allergy Verified 03/14/25 12:23 Review of Systems Review of Systems Narrative Review of Systems: GEN: No fever, no chills, no weight loss EYES: No discharge, no visual changes, no pain HEENT: No ear pain, no congestion, no sore throat PULM: No shortness of breath, no cough, no congestion CV: No chest pain, no dyspnea on exertion, no palpitations GI: No nausea, no vomiting, no diarrhea, no pain, no constipation : No frequency, no urgency, no dysuria MUSC/SKEL: No joint pain, no back pain SKIN: No rash PSYCH: No hallucinations, no depression HEME/LYMPH: No easy bleeding or bruising tendencies NEURO: No weakness, + headache Past Medical History Social History SMOKING STATUS: Never smoker ED Exam Narrative Physical exam: [General: Obese not in any acute distress Head normocephalic HEENT: Within acceptable limits Neck is supple nontender Chest equal chest rise nontender to palpation Respiratory: Clear to auscultation no wheezes crackles or rubs CV: Rate rhythm is regular no murmurs rubs or clicks Abdomen is soft nontender no masses positive bowel sounds all 4 quadrants Back: No CVA tenderness no spinous process tenderness from cervical spine thoracic and lumbar spine Skin: 2 small indurated areas with no surrounding erythema or edema is mild crusting but no exudate. Otherwise skin is intact no petechiae rash induration ulceration or crepitus Extremities: Moving all extremity against resistance cap refill less than 2 seconds neurosensory intact Neuro: Awake alert oriented x3 Glascow coma 15 no focal deficits] Course Course Course Narrative: Recheck before insulin administration shows a blood glucose of 371 will cancel the insulin give the patient fluids and Tylenol. Reassessment of this patient at 1610, the patient's headache has been diminished to a 1 on a 10 scale at this time I am comfortable discharging the patient home with a blood sugar of 371. Quality Measures none Orders Category Date Time Status Saline [Insert IV] NOW Care 03/14/25 14:[address] head/brain wo con Stat Exams 03/14/25 12:38 Completed CBC Stat Lab 03/14/25 12:57 Completed CMP [Comprehensive Metabolic Panel] Stat Lab 03/14/25 12:57 Completed CRP [C-Reactive Protein] Stat Lab 03/14/25 12:57 Completed ESR [Sed Rate (ESR)] Stat Lab 03/14/25 12:57 Completed Acetaminophen Ivpb [Ofirmev Inj] Med 03/14/25 14:40 Active 1,000 mg in 100 ml IV Q6H Insulin Regular Med 03/14/25 14:37 Discontinued 5 unit IV X1 ONE Ringers Lactated 1000 ml [Lactated Ringers] 1,000 ml Med 03/14/25 14:38 Discontinued IV 999 mls/hr Vital Signs Vital signs: Vital Signs Temperature 98.1 F 03/14/25 12:32 Pulse Rate 89 03/14/25 12:32 Respiratory Rate 18 03/14/25 12:32 Blood Pressure 142/82 H 03/14/25 12:32 Pulse Oximetry (%) 99 03/14/25 12:32 Oxygen Delivery Method Room Air 03/14/25 12:32 Discharge Plan Plan Patient Disposition: HOME (Self Care) Patient condition on transfer: Stable Prescriptions/Referrals Prescriptions/Med Rec: New sulfamethoxazole-trimethoprim [Bactrim DS] 800-160 mg tablet 1 tab PO BID 7 Days Qty: 14 0RF No Action hydrocodone-acetaminophen 5-325 mg tablet 1 tab PO TID MDD 3 Qty: 20 0RF ibuprofen 800 mg tablet 800 mg PO TID PRN (Reason: pain) Qty: 30 0RF Referrals: Ariela Rogers MD [Primary Care Provider, Family Practice] - In 1 week Problem List Clinical Impression: Headache, Hyperglycemia, Abscess of scalp Patient/Caregiver Discharge Instructions Other Activity Instructions:: Take your diabetes medications. Follow-up with your primary care doctor. 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 bili elevation C-reactive protein of 1.2. Imaging Imaging interpretation: interpreted by me Imaging Interpretation(s): CT head is negative Medication Administration(s) Medication Administration History Acetaminophen (Ofirmev Inj) 1,000 mg in 100 mls @ 250 mls/hr IV Q6H MARTY Stop: 03/15/25 09:03 Last Infusion: 03/14/25 16:26 Dose: Infused Documented By: Admin: 03/14/25 15:32 Dose: 250 mls/hr Documented By: GIS Discontinued Medications Lactated Ringer's (Lactated Ringers) 1,000 mls @ 999 mls/hr IV .Q1H1M ONE Stop: 03/14/25 15:38 Last Infusion: 03/14/25 16:35 Dose: Infused Documented By: Admin: 03/14/25 15:32 Dose: 999 mls/hr Documented By: ALISON Insulin Human Regular (Insulin Hum Regular 1 Unit/0.01 Ml (Per Unit)) 5 unit IV X1 ONE Stop: 03/14/25 14:38 Last Admin: 03/14/25 15:36 Dose: Not Given Documented By: VRS Non-Admin Reason: Cancelled by Provider
[2025-03-14] MEDS: ACETAMINOPHEN IVPB 1,000 MG/100 ML VIAL 250 MG IV (15:32)
[2025-03-14] MEDS: RINGERS LACTATED 1000 ML 1,000 ML 999 ML IV (15:32)
[2025-03-14 16:59] VITALS: BP 155/89; PULSE 71; O2SAT 98
== END 2025-03-14 17:01 | disposition home or self-care (01) ==
PROVIDERS: Nurse Practitioner Family; Emergency Provider Family Medicine; PCP Family Medicine
DX: L02.811 Cutaneous abscess of head [any part, except face] (principal); R51.9 Headache, unspecified; E11.65 Type 2 diabetes mellitus with hyperglycemia
CPT/HCPCS: 36415; 70450; 80053; 85025; 85652; 86140; 96365; 99283; J0131; J7120